=== PATIENT | male | born 1995 | race Caucasian/White ===

== ENCOUNTER 2017-07-05 20:37 | Emergency (ER) | payer BC, SELFPAY ==
[2017-07-05 20:42] VITALS: BP 128/74; PULSE 106; RESP 16; TEMP 38.1; O2SAT 98; BMI 26.6
--- NOTE | 2017-07-05 20:52 | HMH.EDEXTP ---
ED Disposition Clinical Impression: Paresthesia of right lower extremity Disposition: Home, Self-Care Condition on Discharge: Good Instructions: DI for Numbness/tingling Additional Instructions: see pcp for follow up advil/tyenol - Critical Care Critical Care Time: No Attestation: On , the high probability of a clinically significant, sudden or life threatening deterioration of the following system(s) required my full and direct attention, intervention and personal management. The time I documented below is in addition to time spent performing reported procedures but includes the following listed in this critical care notation. Medical Decision Making - Medical Records Medical records reviewed: Yes: I reviewed the patient's medical records. Vital Signs: 07/05/17 20:42 Temperature 100.6 F H Temperature Source Oral Pulse Rate [Brachial] 106 H Respiratory Rate 16 Blood Pressure [Right Arm] 128/74 Blood Pressure Mean [Right Arm] 92 Blood Pressure Source [Right Arm] Automatic Cuff Blood Pressure Position [Right Arm] Sitting 02 Sat by Pulse Oximetry 98 Oxygen Delivery Method Room Air - Lab Data Lab results reviewed: Yes: I reviewed the patient's lab results. Lab Results 07/05/17 21:10: WBC 6.6, RBC 4.71, Hgb 14.9, Hct 42.5, MCV 90.3, MCH 31.6 H, MCHC 35.0, RDW 12.5, Plt Count 216, MPV 7.1 L, Neut % (Auto) 78.6, Lymph % (Auto) 9.9 L, [place] % (Auto) 10.0 H, Eos % (Auto) 1.2, Baso % (Auto) 0.3, Neut # (Auto) 5.2, Lymph # (Auto) 0.7, [place] # (Auto) 0.7, Eos # (Auto) 0.1, Baso # (Auto) 0.0 07/05/17 21:10: Sodium 137, Potassium 3.5, Chloride 102, Carbon Dioxide 28, Anion Gap 10.5, BUN 14, Creatinine 0.94, Estimated Creat Clear 134, Estimated GFR 100, Est GFR ( Amer) 121, Glucose 101, Calcium 8.6, Total Bilirubin 0.4, AST 12 L, ALT 22, Alkaline Phosphatase 65, Total Protein 7.6, Albumin 4.1, Globulin 3.5 H, Albumin/Globulin Ratio 1.2 Result diagrams: 07/05/17 21:10 07/05/17 21:10 Orders (Tests/Meds): ORDERS Category Date Time Status ESR [Erythrocyte Sedimentation Rate] Stat Lab 07/05/17 21:10 Received - Con Inquiry Pt receiving controlled substance: No Extremity Problem HPI - General Chief complaint: Extremity Problem,Nontraumatic Stated complaint: right leg numb Time Seen by Provider: 07/05/17 20:53 Mode of Arrival: Ambulatory Source of Information: Patient, Medical Record Limitations: No Limitations Description of Symptoms (Recalled from ER Triage Doc. by RN): RIGHT LOWER LEG NUMBNESS WITH TINGLING AND PRESSURE WITH WALKING. - History of Present Illness HPI Narrative: atraumatic acute onset of rt lower leg tingling with some pain with wt bearing - no changes on lt and no fever or rash or insect bites - no lower back pain - sx have been present 4 hrs MD Complaint: extremity pain Onset (ago): hour(s) Consistency: constant Location: right, lower extremity Radiation: none Exacerbating factors: weight bearing Associated symptoms: denies other symptoms - Related Data Home Medications Medication Instructions Recorded Confirmed No Known Home Medications [No 07/05/17 07/05/17 Known Home Medications] Allergies Allergy/AdvReac Type Severity Reaction Status Date / Time No Known Allergies Allergy Verified 07/05/17 20:48 [facility] History I have reviewed the patient's past medical history: Yes - *Social History Alcohol Intake: current Alcohol Intake Frequency:: a few times a month - Psychiatric History Expresses thoughts of harming self/others: None Suicide Plan Description: No Plan ROS Obtained: Yes All systems reviewed & no additional complaints - Constitutional Constitutional: Denies chills, Denies fever(s) - Eyes Eyes: Denies change in vision - ENT Ears, Nose, Mouth, and Throat: Denies sore throat - Cardiovascular Cardiovascular: Denies chest pain, Denies palpitations - Respiratory Respiratory: No chest congestion, No cough - Gastrointesti
--- NOTE | 2017-07-05 20:59 | ED_ITS ---
ED Disposition Clinical Impression: Paresthesia of right lower extremity Disposition: Home, Self-Care Condition on Discharge: Good Instructions: DI for Numbness/tingling Additional Instructions: see pcp for follow up advil/tyenol - Critical Care Critical Care Time: No Attestation: On , the high probability of a clinically significant, sudden or life threatening deterioration of the following system(s) required my full and direct attention, intervention and personal management. The time I documented below is in addition to time spent performing reported procedures but includes the following listed in this critical care notation. Medical Decision Making - Medical Records Medical records reviewed: Yes: I reviewed the patient's medical records. Vital Signs: 07/05/17 20:42 Temperature 100.6 F H Temperature Source Oral Pulse Rate [Brachial] 106 H Respiratory Rate 16 Blood Pressure [Right Arm] 128/74 Blood Pressure Mean [Right Arm] 92 Blood Pressure Source [Right Arm] Automatic Cuff Blood Pressure Position [Right Arm] Sitting 02 Sat by Pulse Oximetry 98 Oxygen Delivery Method Room Air - Lab Data Lab results reviewed: Yes: I reviewed the patient's lab results. Lab Results 07/05/17 21:10: WBC 6.6, RBC 4.71, Hgb 14.9, Hct 42.5, MCV 90.3, MCH 31.6 H, MCHC 35.0, RDW 12.5, Plt Count 216, MPV 7.1 L, Neut % (Auto) 78.6, Lymph % (Auto ) 9.9 L, [place] % (Auto) 10.0 H, Eos % (Auto) 1.2, Baso % (Auto) 0.3, Neut # (Auto ) 5.2, Lymph # (Auto) 0.7, [place] # (Auto) 0.7, Eos # (Auto) 0.1, Baso # (Auto) 0.0 07/05/17 21:10: Sodium 137, Potassium 3.5, Chloride 102, Carbon Dioxide 28, Anion Gap 10.5, BUN 14, Creatinine 0.94, Estimated Creat Clear 134, Estimated GFR 100, Est GFR ( Amer) 121, Glucose 101, Calcium 8.6, Total Bilirubin 0.4, AST 12 L, ALT 22, Alkaline Phosphatase 65, Total Protein 7.6, Albumin 4.1, Globulin 3.5 H, Albumin/Globulin Ratio 1.2 Result diagrams: 07/05/17 21:10 07/05/17 21:10 Orders (Tests/Meds): ORDERS Category Date Time Status ESR [Erythrocyte Sedimentation Rate] Stat Lab 07/05/17 21:10 Received - Con Inquiry Pt receiving controlled substance: No Extremity Problem HPI - General Chief complaint: Extremity Problem,Nontraumatic Stated complaint: right leg numb Time Seen by Provider: 07/05/17 20:53 Mode of Arrival: Ambulatory Source of Information: Patient, Medical Record Limitations: No Limitations Description of Symptoms (Recalled from ER Triage Doc. by RN): RIGHT LOWER LEG NUMBNESS WITH TINGLING AND PRESSURE WITH WALKING. - History of Present Illness HPI Narrative: atraumatic acute onset of rt lower leg tingling with some pain with wt bearing - no changes on lt and no fever or rash or insect bites - no lower back pain - sx have been present 4 hrs MD Complaint: extremity pain Onset (ago): hour(s) Consistency: constant Location: right, lower extremity Radiation: none Exacerbating factors: weight bearing Associated symptoms: denies other symptoms - Related Data Home Medications Medication Instructions Recorded Confirmed No Known Home Medications [No 07/05/17 07/05/17 Known Home Medications] Allergies Allergy/AdvReac Type Severity Reaction Status Date / Time No Known Allergies Allergy Verified 07/05/17 20:48 [facility] History I have revi
--- NOTE | 2017-07-05 21:13 | PC.NURSE ---
BLOOD OBTAINED AN SENT TO LAB
[2017-07-05 21:29] LABS: Basophils % 0.3 % (0.1-2.0); Eosinophils # 0.1 K/mm3 (0.0-0.4); Eosinophils % 1.2 % (0.1-12.0); Hematocrit 42.5 % (42.0-52.0); Hemoglobin 14.9 g/dL (14.1-18.0); Lymphocytes # 0.7 K/mm3 (0.7-4.5); Lymphocytes % 9.9 K/mm3 (10-50); Mean Corpuscular Hemoglobin 31.6 pg (27.0-31.2); Mean Corpuscular Volume 90.3 fl (80-94); Mean Platelet Volume 7.1 fl (7.4-10.4); Monocytes # 0.7 K/mm3 (0.1-1.0); Neutrophils # 5.2 K/mm3 (1.8-7.8); Neutrophils % 78.6 % (37.0-80.0); Platelet Count 216 K/mm3 (142-424); Red Blood Count 4.71 M/mm3 (4.60-6.20); Red Cell Distribution Width 12.5 % (11.5-17.5); White Blood Count 6.6 K/mm3 (4.8-10.8)
[2017-07-05 21:36] LABS: Alanine Aminotransferase 22 U/L (12-78); Albumin Level 4.1 gm/dL (3.4-5.0); Albumin/Globulin Ratio 1.2 (1.1-1.8); Alkaline Phosphatase 65 U/L (46-116); Anion Gap 10.5 mEq/L (5-15); Aspartate Amino Transferase 12 U/L (15-37); Bilirubin,Total 0.4 mg/dL (0.2-1.0); Blood Urea Nitrogen 14 mg/dL (7-18); Calcium 8.6 mg/dL (8.5-10.1); Carbon Dioxide 28 mmol/L (21.0-32.0); Chloride 102 mmol/L (98-107); Creatinine Clearance Estimated 134 mL/min (0-300); Creatinine,Serum 0.94 mg/dL (0.70-1.30); Estimated Glomerular Filt Rate 100 ml/min (>60); GFR (African American) 121 ML/MIN (>60); Globulin 3.5 gm/dl (1.3-3.2); Glucose 101 mg/dL (74-106); Potassium 3.5 mmoL/L (3.5-5.1); Sodium 137 mmol/L (136-145); Total Protein,Serum 7.6 gm/dL (6.4-8.2)
[2017-07-05 22:04] LABS: Adenovirus,PCR Not Detected (NotDetected); Bordetella Pertussis Not Detected (NotDetected); Chlamydophila Pneumoniae, PCR Not Detected (NotDetected); Coronavirus 229E Not Detected (NotDetected); Coronavirus NL63 Not Detected (NotDetected); Coronavirus OC43 Not Detected (NotDetected); Coronovirus HKU1,PCR Not Detected (NotDetected); Human Metapneumovirus Not Detected (NotDetected); Influenza A, PCR Not Detected (NotDetected); Influenza AH1, 2009 Not Detected (NotDetected); Influenza AH1, PCR Not Detected (NotDetected); Influenza AH3,PCR Not Detected (NotDetected); Influenza B, PCR Not Detected (NotDetected); Mycoplasma Pneumoniae, PCR Not Detected (NotDected); Parainfluenza 1, PCR Not Detected (NotDetected); Parainfluenza 2, PCR Not Detected (NotDetected); Parainfluenza 3, PCR Not Detected (NotDetected); Parainfluenza 4, PCR Not Detected (NotDetected); Respiratory Syncytial Virus Not Detected (NotDetected); Rhinovirus/Enterovirus Not Detected (NotDetected)
[2017-07-05 22:30] LABS: Erythrocyte Sedimentation Rate 12 mm/hr (0-15)
== END 2017-07-05 22:09 | disposition home or self-care (01) ==
PROVIDERS: Emergency Provider Emergency Medicine
DX: R20.2 Paresthesia of skin (principal)
CPT/HCPCS: 80053; 85025; 85651; 87486; 87581; 87633; 87798; 99282

== ENCOUNTER 2025-03-14 08:56 | Outpatient (CLI) | payer OTHER, SELFPAY ==
--- OUTSIDE RECORDS SUMMARY | 2025-03-14 09:13 | XMS_ITS | Clinical Summary ---
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 Name Role Phone Unavailable Primary Care Provider Unavailabl e Allergies No known active allergies Medications No known medications Active Problems No known active problems Social History Tobacco Use Types Packs/Day Years Used Date Smoking Tobacco: Never Smokeless Tobacco: Current Chew Sex and Gender Information Value Date Recorded Sex Assigned at Not on file Legal Sex Male 7:30 AM CDT Gender Identity Not on file Sexual Orientation Not on file Last Filed Vital Signs Vital Sign Reading Time Taken Comments Blood Pressure 120/91 05/24/2018 8:51 PM EST Pulse 71 03/02/2020 12:41 PM EDT Temperature 36.6 C (97.9 F) 03/02/2020 12:41 PM EDT Respiratory Rate - - Oxygen Saturation 96% 03/02/2020 12:41 PM EDT Inhaled Oxygen Concentration - - Weight 75.8 kg (167 lb) 07/07/2017 5:18 PM 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 Height 170.2 cm (5' 7 ) 07/07/2017 5:18 PM 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 Body Mass Index 26.16 07/07/2017 5:18 PM 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 Plan of Treatment Health Maintenance Due Date Last Done Comments Dental Cleaning/Exam 1995 HPV Immunization (1 - Male 3 -dose series) 2010 Hepatitis B Immunization (1 of 3 - 19+ 3-dose series) 2014 Tetanus Diphtheria and Pertu ssis Immunization (1 - Tdap) 2014 Covid-19 Immunization (1 - 2 season) 2025 Influenza Immunization (#1) 2025 HIB Immunization Aged Out No longer e ligible based on patient's age to complete this topic Hepatitis A Immunization Aged Out No longer eligible based on patient's age to complete this topic Pneumococcal Immunization Aged Out No longer eligible based on patient's age to complete this topic Polio Immunization Aged Out No longer eligible based on patient's age to complete this topic Varicella Immunization Aged Out No lo nger eligible based on patient's age to complete this topic [facility]
[2025-03-14 10:30] LABS: Hematocrit 47.5 % (42.0-52.0); Hemoglobin 16.5 g/dL (14.1-18.0); Immature Granulocytes % 0.3 %; Mean Corpuscular HGB Conc 34.7 g/dL (31.8-35.4); Mean Corpuscular Hemoglobin 31.0 pg (27.0-31.2); Mean Corpuscular Volume 89.3 fl (80-94); Nucleated Red Blood Cells % 0 %; Platelet Count 246 K/mm3 (142-424); Red Blood Count 5.32 M/mm3 (4.60-6.20); Red Cell Distribution Width-SD 41.2 fL; White Blood Count 5.9 K/mm3 (4.8-10.8)
[2025-03-14 11:10] LABS: Albumin Level 4.5 g/dl (3.5-5.0); Chloride 102 mmol/L (98-107); Potassium 4.5 mmoL/L (3.5-5.1); Sodium 140 mmol/L (136-145)
[2025-03-14 11:13] LABS: Alanine Aminotransferase 25 U/L (12-78); Albumin/Globulin Ratio 1.7 (1.1-1.8); Alkaline Phosphatase 77 U/L (38-126); Anion Gap 13.5 mEq/L (5-15); Aspartate Amino Transferase 22 U/L (17-59); Bilirubin,Total 1.0 mg/dl (0.2-1.3); Blood Urea Nitrogen 15 mg/dl (9-20); Calcium 9.7 mg/dl (8.4-10.2); Carbon Dioxide 29 mmol/L (22.0-30.0); Cholesterol 214 mg/dl (140-200); Creatinine,Serum 0.90 mg/dl (0.66-1.25); Estimated Glomerular Filt Rate 100 ml/min (>60); GFR (African American) 121 ML/MIN (>60); Globulin 2.6 g/dL (1.3-3.2); Glucose 93 mg/dl (74-100); Total Protein,Serum 7.1 g/dl (6.3-8.2); Triglycerides 193 mg/dl (30-150)
[2025-03-14 11:14] LABS: HDL Cholesterol 29 mg/dl (40-60)
== END 2025-03-14 23:59 | disposition home or self-care (01) ==
LOC: LAB 08:59
PROVIDERS: PCP Internal Medicine; Visit Provider Internal Medicine
DX: Z00.00 Encounter for general adult medical examination without abnormal findings (principal); Z13.220 Encounter for screening for lipoid disorders; Z82.49 Family history of ischemic heart disease and other diseases of the circulatory system; E66.9 Obesity, unspecified; R53.83 Other fatigue
CPT/HCPCS: 36415; 80053; 80061; 84403; 85025

== ENCOUNTER → 2025-04-28 07:08 | Outpatient (CLI) | payer OTHER, SELFPAY ==
--- OUTSIDE RECORDS SUMMARY | 2025-04-28 07:10 | XMS_ITS | Clinical Summary ---
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
== END ==
LOC: SL 07:08
PROVIDERS: PCP Internal Medicine; Visit Provider Internal Medicine
DX: G47.33 Obstructive sleep apnea (adult) (pediatric) (principal)
CPT/HCPCS: 95806